=== PATIENT | male | born 1960 | race Caucasian/White ===

== ENCOUNTER 2017-08-17 11:10 | Emergency (ER) | payer OTHER ==
[~2017-08-17] VITALS: Ht 172.7 cm; Wt 106.6 kg
[~2017-08-17 11:10] MED LIST: CENTRUM SILVER1 EAC4 PO; GINKGO BILOBA30 MG PO; GLUCOPHAGE1000 MG PO; KEFLEX500 M1 PO; KLOR-CON 1010 MEQ PO; LISINOPRIL30 MG PO; MAGOX 400400 MG PO; NOVOLOG100 UNIT/1 SUBQ; SIMVASTATIN5 MG PO; VITAMIN D1000 UNI1 PO; VITAMINC500 PO
[2017-08-17] MEDS ORDERED: IBUPROFEN 800800 M1 PO (11:31)
[2017-08-17] MEDS ORDERED: AUGMENTIN 875-1 EACH PO ×2 (11:32→12:36)
[2017-08-17 11:53] LABS: ABSOLUTE NEUTROPHILS 4.8 thou/uL (1.4-8.2); BASOPHILS 0.8 % (0.0-2.0); EOSINOPHILS 3.6 % (0.0-3.0); HEMATOCRIT 39.5 % (42.0-52.0); HEMOGLOBIN 13.8 gm/dL (14.0-18.0); LYMPHOCYTES 25.9 % (24.0-44.0); MCH 30.9 pg (26.0-34.0); MCHC 34.8 g/dL (28.0-37.0); MCV 88.8 fL (80.0-100.0); MONOCYTES 6.4 % (1.0-8.0); PLATELET COUNT 206 thou/uL (150-400); POLYS 63.3 % (36.0-66.0); RBC 4.45 mil/uL (4.50-6.00); RDW 13.1 % (10.5-14.5); WBC 7.6 thou/uL (4.0-11.0)
[2017-08-17 12:06] LABS: CALCIUM 10.3 mg/dL (8.5-10.1); CREATININE 0.8 mg/dL (0.7-1.3); POTASSIUM 4.5 mmol/L (3.5-5.1)
[2017-08-17] MEDS ORDERED: ULTRAM 50MG TAB50 MG PO (12:36)
[2017-08-17 12:59] VITALS: BP 107/66
[2017-11-06] MEDS ORDERED: LISINOPRIL5 MG PO (15:25)
[2017-11-06] MEDS ORDERED: GLUCOPHAGE850 MG PO (15:25)
[2017-11-06] MEDS ORDERED: VITAMIN D35000 UNI1 PO (15:26)
[2017-11-06] MEDS ORDERED: SIMVASTATIN40 MG PO (15:26)
[2017-11-06] MEDS ORDERED: MULTI VITAMIN1 EACH PO (15:27)
[2017-11-06] MEDS ORDERED: MAGNESIUM CITR100 MG PO (15:27)
[2017-11-06] MEDS ORDERED: POTASSIUM99 M1 PO (15:29)
[2017-11-06] MEDS ORDERED: VITAMIN K100 MCG PO (15:29)
[2017-11-06] MEDS ORDERED: VITAMIN B122500 MCG PO (15:30)
[2017-11-06] MEDS ORDERED: GLUCOSAMINE &1 EACH PO (15:34)
[2017-11-06] MEDS ORDERED: MSM500 MG PO (15:35)
[2017-11-06] MEDS ORDERED: HYALURONIC ACI1 EACH PO (15:36)
[2017-11-06] MEDS ORDERED: TRESIBA FL100 UNIT/1 SUBQ (15:40)
[2017-12-07] MEDS ORDERED: BACTRIM DS TAB1 EACH PO (10:33)
== END 2017-08-17 12:59 | disposition home or self-care (01) ==
LOC: ER 11:10
PROVIDERS: Emergency Medicine
DX: L02.211 Cutaneous abscess of abdominal wall (principal); E10.9 Type 1 diabetes mellitus without complications; I10 Essential (primary) hypertension; Z87.891 Personal history of nicotine dependence

== ENCOUNTER 2017-11-15 05:25 | Inpatient (IN) | payer OTHER ==
[~2017-11-15] VITALS: Ht 172.7 cm; Wt 106.6 kg
--- NOTE | ~2017-11-15 | S ---
[facility] [place] [address] SURGICAL PATH RPT PROCEDURE Name: LEANDRO SCHWARTZ Room #: 405-P ADM IN M.R.#: [id number] Admission: 11/15/17 Date of : 58 Discharge: Report #: [id number] Path Case #: [id number] PATHOLOGY REPORT COLLECTION DATE: 11/15/2017 RECEIVED DATE: 11/16/2017 SUBMITTING PHYS: Dr. Jane Peck OTHER PHYS: Dr. Charles Ramirez SPECIMEN(S) RECEIVED: A.Appendix B.Omentum C.Abdominal tissue with infected mesh D.Gallbladder E.Hernia sac F.Abdominal skin * * * * * * * * * * * * FINAL DIAGNOSIS: A. Appendix, appendectomy: - Fibrous obliteration of the appendix. B. Omentum, omentectomy: - 15.8 cm omentum showing congestion, mild chronic inflammation, and areas of fat necrosis. C. Abdominal wall tissue with infected mesh, removal: - Marked acute inflammation associated with abscess formation, chronic inflammation as well as giant cell reaction. D. Gallbladder, cholecystectomy: - Mild chronic cholecystitis. - Cholesterolosis. E. Hernia sac, repair: - Fibrovascular connective tissue with marked acute and chronic inflammation, fibrinoid degeneration as well as congestion. F. Abdominal skin, excision: - Reactive and reparative changes. (IUV:pit; 11/19/2017) PATHOLOGIST: Ashlee Oliveira M.D. REPORT ELECTRONICALLY SIGNED BY: Ashlee Oliveira M.D. DATE/TIME: 11/19/2017 13:33 * * * * * * * * * * * * GROSS PATHOLOGY: A. Received in formalin labeled "Leandro Schwartz, appendix," is an appendix measuring 6.1 cm in length and up to 1.0 cm in diameter with [facility] [address] [place] [address] SURGICAL PATH RPT PROCEDURE Name: LEANDRO SCHWARTZ Room #: 405-P ADM IN M.R.#: [id number] Admission: 11/15/17 Date of : 58 Discharge: Report #: [id number] Path Case #: [id number] a moderate amount of attached mesoappendix. The serosal surface is pink-lynch and glistening in appearance. Sectioning reveals a pinpoint to patent lumen filled with blood-tinged mucoid material admixed with a slight amount of fecal material. Brick Or Block Maker sections are submitted in cassette A1. B. The specimen is received in formalin labeled "Leandro Schwartz, omentum". Received is a moderate amount of yellow-lynch omentum measuring 15.8 x 7.5 x 2.9 cm in aggregate dimensions. Sectioning reveals bright yellow, lobulated cut surfaces with no grossly distinct nodules or lesions. The specimen is submitted representatively in cassette B1. C. The specimen is received in formalin labeled "Leandro Schwartz, abdominal wall tissue with infected mesh". Received are multiple segments of yellow-lynch lobulated tissue admixed with pale lynch, wrinkled skin measuring 17.9 x 15.6 x 3.7 cm in aggregate dimensions. Sectioning reveals yellow-lynch, lobulated to white-lynch, fibrous cut surfaces throughout. Mesh-like material is not grossly identified upon thorough sectioning of the specimen. Sectioning through the tissue underlying the skin reveals a fistula measuring 1.5 cm in length by 0.5 cm in diameter with embedded sutures. The specimen is submitted representatively in cassette C1. D. Received in formalin labeled "Leandro Schwartz, gallbladder," is a 9.3 x 3.2 x 1.4 cm, intact gallbladder with blue-olivas serosal surfaces. Opening the gallbladder reveals a velvety, bile-stained mucosa with mild, diffuse cholesterolosis, and an average wall thickness of 0.1 cm. Calculi are not present and no masses are noted grossly. Brick Or Block Maker sections from the body and fundus are submitted along with the proximal margin in cassette D1. E. Received in formalin labeled "Leandro Schwartz, hernia sac," is a piece of fibroadipose tissue admixed with fibromembranous tissue measuring 22.7 x 15.9 x 5.1 cm. No nodules or lesions are identified. Brick Or Block Maker tissue is submitted in cassette E1. F. The specimen is received in formalin labeled "Leandro Schwartz, abdominal skin". Received are multiple segments of pale lynch, wrinkled skin with attached underlying yellow-lynch fibroadipose tissue and adherent olivas-lynch membranous tissue measuring 28.5 x 19.7 x 6.6 cm in aggregate dimensions. Sectioning reveals bright yellow, lobulated to white-lynch, fibrous cut surfaces throughout with no grossly distinct nodules or lesions. The specimen is submitted representatively in cassette F1. (CAA; 11/16/2017) CLINICAL HISTORY: Ventral hernia INITIAL CPT CODE(S): A; [address] [address] SURGICAL PATH RPT PROCEDURE Name: LEANDRO SCHWARTZ Room #: 405-P ADM IN M.R.#: [id number] Admission: 11/15/17 Date of : 58 Discharge: Report #: [id number] Path Case #: [id number] B; [id number] C; [id number] D; [id number] E; [id number] F; [id number] Professional services performed by [facility] at [facility] [address], [place] [address] Technical services performed by [facility] at [address] [place] [address], [place] [address]. [facility] [address] [place] [address] PHONE: [phone] DIRECTOR: Elder Owens M.D. * * * END OF REPORT * * *
--- NOTE | ~2017-11-15 | O ---
[facility] [place] [address] OPERATIVE REPORT Name: EFRENBLAKE Room #: 405-P ADM IN M.R.#: [id number] Admission: 11/15/17 Attend Phys: Jane Peck MD, Discharge: Date of : 58 Report #: [id number] THIS REPORT FOR: //name// CC: TUAN Peck DATE OF SERVICE: 11/15/2017 PREOPERATIVE DIAGNOSES: 1. Incarcerated recurrent incisional ventral hernias. 2. Multiple abdominal wall abscesses. 3. Essential hypertension. 4. Type 2 diabetes mellitus. 5. Hyperlipidemia. 6. Morbid obesity with a BMI of 36.07. 7. Suspected intra-abdominal adhesions. POSTOPERATIVE DIAGNOSES: 1. Incarcerated recurrent incisional ventral hernias. 2. Multiple abdominal wall abscesses. 3. Essential hypertension. 4. Type 2 diabetes mellitus. 5. Hyperlipidemia. 6. Morbid obesity with a BMI of 36.07. 7. Dense and significant intra-abdominal adhesions. 8. Chronic cholecystitis. 9. Appendiceal inflammation. 10. Loss of abdominal domain. 11. 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 12. Cirrhosis. PROCEDURES PERFORMED: 1. Exploratory laparotomy with extensive lysis of adhesions lasting 210 minutes. 2. Debridement of infected and necrotic abdominal wall tissue with explantation of infected biologic mesh and synthetic suture material. 3. Appendectomy. 4. Cholecystectomy. 5. Partial omentectomy. 6. Complex abdominal wall reconstruction with open repair of multiple incarcerated recurrent incisional ventral hernias using bioresorbable mesh. 7. Bilateral component separation. 8. Adjacent tissue transfer closure of the anterior abdominal wall, ultimately measuring 44 x 40 cm in dimension (1760 square cm). 9. Topical wound VAC device placement. [facility] [address] [place] [address] OPERATIVE REPORT Name: EFRENBLAKE Room #: 405-P [facility] IN .R.#: [id number] Admission: 11/15/17 Attend Phys: Jane Peck MD, Discharge: Date of : 58 Report #: [id number] 10. Modifier 22 procedure for extreme difficulty of procedure, necessitating a greater than 3-1/2 hour lysis of adhesions, coupled with the necessity of complex abdominal wall reconstruction techniques to repair his multiple incarcerated hernias and using adjacent tissue transfer closure techniques due to loss of subcutaneous tissue from his longstanding herniation. Total operative time was greater than 6 hours and difficulty was encountered secondary to the patient's obesity with a thick abdominal wall and marked intra-abdominal fatty tissue. SURGEON: Jane Peck M.D. RAT BREEDER: Charles Bartlett M.D. SECOND PARKING METER COLLECTOR: BRANDO Judd ANESTHESIA: General endotracheal anesthesia. ESTIMATED BLOOD LOSS: 200 mL. COMPLICATIONS: None appreciated. SPECIMENS: 1. Culture swabs x 4 to microbiology for aerobic, anaerobic and fungal culture and sensitivity for multiple areas of abscess formation of the abdominal wall. 2. All excised abdominal wall tissue and skin including hernia sac to pathology. 3. Infected biologic mesh to pathology. 4. Gallbladder to pathology. 5. Appendix to pathology. INDICATIONS: The patient is a 57-year-old male who has undergone a Chanelle's procedure for perforated diverticulitis in 2000 and ultimately underwent ostomy reversal. Since that time, the patient underwent two subsequent re-explorations initially for a cyst on his colon as well as repair of an incisional hernia. The patient has been found to have numerous sites of recurrent incisional herniation and has had aggressive weight loss, all while having numerous abdominal wall abscesses erupt with purulent drainage. Indication today was for definitive surgical management. Intraoperative findings of gnarled up biologic mesh was encountered with purulent material juxtaposed to it as well as numerous sites of synthetic suture material with purulent drainage as well that required formal explantation and debridement as well as definitive surgical management as delineated above. DESCRIPTION OF PROCEDURE: After explaining the risks, benefits and alternatives of the procedure with the patient in detail in the preoperative holding area and obtaining written consent, the patient was brought to the operating room and [address] [address] OPERATIVE REPORT Name: EFRENBLAKE Room #: 405-P [facility] IN .R.#: [id number] Admission: 11/15/17 Attend Phys: Jane Peck MD, Discharge: Date of : 58 Report #: [id number] placed supine on the operating room table. After conducting a thorough timeout procedure verifying correct patient and procedure, the patient was given general endotracheal anesthesia. Once adequate anesthesia was obtained, his SCDs were hooked up to pneumatic compression device. He was given a preoperative dose of antibiotics in line with the SCIP protocol. The patient's abdomen was prepped and draped in standard surgical sterile fashion. A #10 bladed scalpel was used to create a longitudinal midline incision from subxyphoid location to the suprapubic location. This was made in elliptical fashion around his prior midline scar that appeared to have slight dehiscence. Electrocautery was used to carry this down through skin and subcutaneous tissues to ensure hemostasis. The scar was excised and passed off the field as specimen. I entered into the abdomen and the superior most aspect of the incision site and was able to place a finger into the abdomen and I opened the longitudinal midline incision with some difficulty due to the significant adhesions as well as numerous sites of incarcerated bowel. Ultimately, I was able to open the entire fascial incision in a controlled setting without damage to the underlying bowel structures and Ben clamps were placed along the edges of what appeared to be fascia. This was elevated and I proceeded to continue our lysis of adhesions, which ultimately lasted 210 minutes. Through this lysis, I proceeded to take down all adhesions from the posterior aspect of the anterior abdominal wall throughout as well as having taken down all interloop abscesses from the small bowel and colon. Once the lysis of adhesions was done, I proceeded to run the small bowel from ligament of Treitz distally in a [id number]-paao-yfzz fashion on three subsequent occasions showing no evidence of serosal injuries, enterotomies or defects. The patient's appendix was markedly enlarged and elongated with a thickened appearance and hyperinjection consistent with possible chronic appendicitis and as such, we did elect to perform an appendectomy. A window was made in the mesoappendix near its base using electrocautery and the appendix was then transected at its healthy base with a MANUELA blue load 75 mm stapler. The appendix was elevated and the mesoappendix was transected using the EnSeal X1 advanced energy device for hemostasis. This was then passed off the field as specimen. I proceeded to oversew the appendiceal staple line using 3-0 PDS in standard Lembert fashion using a [id number]-[id number] Lembert suture as a Z-stitch. The entire ascending, transverse, and descending colons appeared healthy and uninjured throughout. Evaluation of the patient's gallbladder showed marked cholesterolosis and thickening and as such, we elected to perform a cholecystectomy due to the high risk nature of any subsequent gallbladder attacks and proceeding with a cholecystectomy at that time being incidentally more difficult. The patient did have prior complaints of intermittent postprandial right upper quadrant pain as well. A Pean clamp was used to elevate the gallbladder and tedious dissection was undertaken down around the cholecystocystic junction using a right angle dissector. Ultimately, I was able to attain a critical view, namely the cystic duct emanating from the infundibulum of the gallbladder and coursing the common bile duct as well as cystic artery running the surface of the gallbladder and I created a window behind each. I transected the cystic artery between sets of 2 clips each side [facility] [address] [place] [address] OPERATIVE REPORT Name: BLAKE SCHWARTZ Room #: 405-P [facility] IN M.R.#: [id number] Admission: 11/15/17 Attend Phys: Jane Peck MD, Discharge: Date of : 58 Report #: [id number] and transected between them using Metzenbaum scissors. Three clips were placed along the cystic duct nearest to the common bile duct side and one clip was placed along the cystic duct nearest to the gallbladder side. I transected the cystic duct with Metzenbaum scissors between those sets of clips as well. We now proceeded to resect the gallbladder off the liver bed using electrocautery for hemostasis. The gallbladder was then passed off the field as specimen. The patient did have a cirrhotic liver and as such, we did place a piece of Surgicel in the gallbladder fossa as well as FloSeal for long-term hemostasis. Turning our attention to the patient's abdominal wall at this juncture, the patient did have evidence of numerous sites of synthetic suture material as well as what appeared to be a biologic mesh gnarled up upon itself. We proceeded to debride all of this ischemic and necrotic abdominal wall tissue including explantation of a synthetic suture material and explanted all mesh, which showed multiple sites of purulent material for which culture swabs were taken and passed to microbiology. Ultimately, once I had excised all of this tissue and synthetic material, we had healthy viable vascularized fascia evident. Unfortunately, the patient did have loss of abdominal domain at this juncture and necessitated bilateral component separation closure of the anterior abdominal wall. The patient's posterior fascia was completely obliterated and entering into the transversus space appeared to be not possible at this juncture and as such, I proceeded to perform an external oblique release. Electrocautery was used to score the lateral border of the rectus abdominis muscle bilaterally and as far as possible in the craniocaudal fashion. Taking down this external oblique aponeurosis allowed significant medial mobilization of the midline fascial wound to where it could be brought together at the midline without tension. One final evaluation of the intra-abdominal domain showed no further evidence of pathology. I did irrigate with 500 mL of normal saline and it ran clear. We had no intra-abdominal spillage of any kind. I now closed the midline fascial wound using looped #1 PDS suture in standard running fashion from inferior to superior as well as another suture from superior to inferior and where the sutures met, they were tied together. The subcutaneous space was now copiously irrigated as well. I now proceeded to use Phasix bioresorbable mesh to use as an onlay and selected 2 pieces of Phasix, the first being 30 x 25 cm in dimension, the second being 20 x 15 cm in dimension. These were tailored to fit the abdominal wall and were quilted together using #1 PDS suture in standard running fashion. This was then used as an onlay where it was anchored to the fascia using 0 PDS sutures as well as 50 mL of Tisseel. This gave us excellent biologic bioresorbable mesh buttressing of our numerous abdominal wall suture repairs for his hernias. Of note, prior to closing the midline fascial wound, he did have evidence of an additional incisional hernia in the left mid rectus location, which I suspect was his prior ostomy site. This was closed using #1 PDS in standard running fashion, taking full thickness bites longitudinally. This was done prior to closing the midline fascial wound. I now placed two 19 Amharic Javid-Panchal drains in the subcutaneous space. These were anchored to the skin using 2-0 nylon in a standard fashion. The one emanating from the right lower quadrant crossed over low in the pelvis and ran up the left [address] [address] OPERATIVE REPORT Name: EFRENBLAKE Room #: 405-P ADM IN M.R.#: [id number] Admission: 11/15/17 Attend Phys: Jane Peck MD, Discharge: Date of : 58 Report #: [id number] subcutaneous gutter and vice versa. The drain emanating from the left lower quadrant crossed over in the pelvis and ran up the right subcutaneous gutter. Unfortunately, due to the patient's longstanding large herniation, his bowel was right next to skin and he had no subcutaneous tissue in the right lower abdominal wall region. The patient had a significant amount of excess skin as well and as such, we now tailored the anterior abdominal wall, resecting all excess skin including hernia sac. Bringing the skin together at the midline showed no subcutaneous tissue overlying the mesh in the right lower abdomen and as such, I performed an adjacent tissue transfer closure of the anterior abdominal wall. In the process of performing this operation, we did clear large skin flaps circumferentially, defined healthy fascia throughout and at the skin flaps were elevated and I proceeded to make relaxing incisions internally using electrocautery to allow medial rotation of vascularized pedicles of subcutaneous fat, which were then sewn down at numerous locations to attain soft tissue coverage over the mesh that was vascularized and below skin. Once this was done, I proceeded to close skin using skin lizbeth and placed a topical wound VAC device in standard fashion. At the end of the lengthy procedure, all instrument, needle and sponge counts were correct. The patient tolerated the procedure without incident, was awakened in the operating room and transitioned to the recovery room in stable condition with no apparent complications. <ELECTRONICALLY SIGNED> By: Jane Peck MD, FACS 11/19/17 [id number] Jane Peck MD, FACS /nt
[~2017-11-15 05:25] MED LIST changes: +AUGMENTIN 875-1 EACH PO; +GLUCOPHAGE850 MG PO; +GLUCOSAMINE &1 EACH PO; +HYALURONIC ACI1 EACH PO; +IBUPROFEN 800800 M1 PO; +LISINOPRIL5 MG PO; +MAGNESIUM CITR100 MG PO; +MSM500 MG PO; +MULTI VITAMIN1 EACH PO; +POTASSIUM99 M1 PO; +SIMVASTATIN40 MG PO; +TRESIBA FL100 UNIT/1 SUBQ; +ULTRAM 50MG TAB50 MG PO; +VITAMIN B122500 MCG PO; +VITAMIN D35000 UNI1 PO; +VITAMIN K100 MCG PO
[2017-11-15 09:00] VITALS: BP 128/78
[2017-11-15 09:16] LABS: HEMATOCRIT 43.3 % (42.0-52.0); HEMOGLOBIN 14.8 gm/dL (14.0-18.0)
[2017-11-15 18:55] VITALS: BP 161/89
[2017-11-15 20:26] VITALS: BP 161/89
[2017-11-15 23:57] VITALS: BP 120/73
[2017-11-16 04:42] VITALS: BP 122/81
[2017-11-16 05:37] LABS: HEMATOCRIT 43.8 % (42.0-52.0); HEMOGLOBIN 14.3 gm/dL (14.0-18.0); MCH 29.7 pg (26.0-34.0); MCHC 32.7 g/dL (28.0-37.0); MCV 90.7 fL (80.0-100.0); RBC 4.82 mil/uL (4.50-6.00); RDW 14.2 % (10.5-14.5); WBC 12.1 thou/uL (4.0-11.0)
[2017-11-16 05:43] LABS: CALCIUM 8.3 mg/dL (8.5-10.1); CREATININE 1.1 mg/dL (0.7-1.3); POTASSIUM 5.2 mmol/L (3.5-5.1)
[2017-11-16 07:32] VITALS: BP 130/72
[2017-11-16 15:00] VITALS: BP 113/63
[2017-11-16 20:22] VITALS: BP 116/75
[2017-11-17 03:25] LABS: ABSOLUTE NEUTROPHILS 8.5 thou/uL (1.4-8.2); BASOPHILS 0.5 % (0.0-2.0); EOSINOPHILS 1.2 % (0.0-3.0); HEMATOCRIT 34.9 % (42.0-52.0); LYMPHOCYTES 15.3 % (24.0-44.0); MCH 30.3 pg (26.0-34.0); MCHC 33.3 g/dL (28.0-37.0); MONOCYTES 10.1 % (1.0-8.0); PLATELET COUNT 178 thou/uL (150-400); POLYS 72.9 % (36.0-66.0); RBC 3.83 mil/uL (4.50-6.00); RDW 13.9 % (10.5-14.5); WBC 11.7 thou/uL (4.0-11.0)
[2017-11-17 03:33] LABS: HEMOGLOBIN 11.6 gm/dL (14.0-18.0)
[2017-11-17 03:34] LABS: CALCIUM 8.1 mg/dL (8.5-10.1); CREATININE 0.9 mg/dL (0.7-1.3); POTASSIUM 4.4 mmol/L (3.5-5.1)
[2017-11-17 05:02] VITALS: BP 142/63
[2017-11-17 07:25] VITALS: BP 150/91
[2017-11-17 17:50] VITALS: BP 156/82
[2017-11-17 20:00] VITALS: BP 160/87
[2017-11-18 04:27] LABS: ABSOLUTE NEUTROPHILS 8.3 thou/uL (1.4-8.2); BASOPHILS 0.5 % (0.0-2.0); EOSINOPHILS 2.8 % (0.0-3.0); HEMATOCRIT 33.6 % (42.0-52.0); HEMOGLOBIN 11.3 gm/dL (14.0-18.0); LYMPHOCYTES 10.1 % (24.0-44.0); MCH 30.5 pg (26.0-34.0); MCHC 33.7 g/dL (28.0-37.0); MCV 90.5 fL (80.0-100.0); MONOCYTES 7.4 % (1.0-8.0); PLATELET COUNT 164 thou/uL (150-400); POLYS 79.2 % (36.0-66.0); RBC 3.71 mil/uL (4.50-6.00); RDW 13.9 % (10.5-14.5); WBC 10.5 thou/uL (4.0-11.0)
[2017-11-18 04:40] LABS: CALCIUM 8.7 mg/dL (8.5-10.1); CREATININE 0.6 mg/dL (0.7-1.3); POTASSIUM 3.9 mmol/L (3.5-5.1)
[2017-11-18 07:59] VITALS: BP 144/74
[2017-11-18 17:05] VITALS: BP 153/95
[2017-11-18 19:53] VITALS: BP 150/81
[2017-11-19 05:03] VITALS: BP 148/76
[2017-11-19 06:38] LABS: ABSOLUTE NEUTROPHILS 6.1 thou/uL (1.4-8.2); BASOPHILS 0.5 % (0.0-2.0); EOSINOPHILS 3.7 % (0.0-3.0); HEMATOCRIT 33.4 % (42.0-52.0); HEMOGLOBIN 11.3 gm/dL (14.0-18.0); LYMPHOCYTES 12.1 % (24.0-44.0); MCH 30.6 pg (26.0-34.0); MCHC 33.8 g/dL (28.0-37.0); MCV 90.5 fL (80.0-100.0); MONOCYTES 7.4 % (1.0-8.0); PLATELET COUNT 201 thou/uL (150-400); POLYS 76.3 % (36.0-66.0); RBC 3.69 mil/uL (4.50-6.00)
[2017-11-19 06:52] LABS: CALCIUM 9.1 mg/dL (8.5-10.1); CREATININE 0.6 mg/dL (0.7-1.3); POTASSIUM 3.8 mmol/L (3.5-5.1)
[2017-11-19 08:45] VITALS: BP 137/88
[2017-11-19 17:02] VITALS: BP 149/88
[2017-11-19 20:00] VITALS: BP 134/69
[2017-11-20] VITALS: BP 138/80
[2017-11-20 04:00] VITALS: BP 145/86
[2017-11-20 06:17] LABS: BASOPHILS 0.8 % (0.0-2.0); EOSINOPHILS 3.4 % (0.0-3.0); HEMATOCRIT 33.6 % (42.0-52.0); HEMOGLOBIN 11.3 gm/dL (14.0-18.0); LYMPHOCYTES 11.6 % (24.0-44.0); MCH 30.5 pg (26.0-34.0); MCHC 33.7 g/dL (28.0-37.0); MCV 90.4 fL (80.0-100.0); MONOCYTES 8.8 % (1.0-8.0); PLATELET COUNT 222 thou/uL (150-400); POLYS 75.4 % (36.0-66.0); RBC 3.71 mil/uL (4.50-6.00); RDW 14.2 % (10.5-14.5); WBC 9.3 thou/uL (4.0-11.0)
[2017-11-20 06:39] LABS: CALCIUM 9.6 mg/dL (8.5-10.1); CREATININE 0.6 mg/dL (0.7-1.3); POTASSIUM 3.5 mmol/L (3.5-5.1)
[2017-11-20 09:41] VITALS: BP 140/90
[2017-11-20 20:00] VITALS: BP 141/89
[2017-11-20 23:40] VITALS: BP 150/90
[2017-11-21 04:00] VITALS: BP 136/76
[2017-11-21 05:54] LABS: BASOPHILS 0.6 % (0.0-2.0); EOSINOPHILS 4.7 % (0.0-3.0); HEMOGLOBIN 11.1 gm/dL (14.0-18.0); MCH 30.7 pg (26.0-34.0); MCHC 33.7 g/dL (28.0-37.0); MCV 91.3 fL (80.0-100.0); MONOCYTES 9.4 % (1.0-8.0); PLATELET COUNT 233 thou/uL (150-400); POLYS 75.3 % (36.0-66.0); RBC 3.62 mil/uL (4.50-6.00); WBC 9.3 thou/uL (4.0-11.0)
[2017-11-21 06:14] LABS: CALCIUM 9.2 mg/dL (8.5-10.1); CREATININE 0.6 mg/dL (0.7-1.3); POTASSIUM 3.5 mmol/L (3.5-5.1)
[2017-11-21 07:40] VITALS: BP 133/81
[2017-11-21 11:00] VITALS: BP 129/87
[2017-11-21 15:29] VITALS: BP 139/80
[2017-11-21 19:09] VITALS: BP 134/80
[2017-11-22 04:47] VITALS: BP 119/76
[2017-11-22 06:04] LABS: HEMATOCRIT 33.6 % (42.0-52.0); HEMOGLOBIN 11.2 gm/dL (14.0-18.0); MCH 30.3 pg (26.0-34.0); MCHC 33.3 g/dL (28.0-37.0); MCV 91.1 fL (80.0-100.0); RBC 3.69 mil/uL (4.50-6.00); RDW 14.3 % (10.5-14.5); WBC 9.1 thou/uL (4.0-11.0)
[2017-11-22 06:21] LABS: CALCIUM 9.3 mg/dL (8.5-10.1); CREATININE 0.6 mg/dL (0.7-1.3); POTASSIUM 3.6 mmol/L (3.5-5.1)
[2017-11-22 08:30] VITALS: BP 135/88
[2017-11-22 16:00] VITALS: BP 147/91
[2017-11-22 20:11] VITALS: BP 150/79
[2017-11-23 03:39] LABS: ABSOLUTE NEUTROPHILS 6.2 thou/uL (1.4-8.2); BASOPHILS 0.5 % (0.0-2.0); EOSINOPHILS 5.1 % (0.0-3.0); HEMATOCRIT 34.2 % (42.0-52.0); HEMOGLOBIN 11.5 gm/dL (14.0-18.0); LYMPHOCYTES 15.7 % (24.0-44.0); MCH 30.2 pg (26.0-34.0); MCHC 33.4 g/dL (28.0-37.0); MCV 90.2 fL (80.0-100.0); MONOCYTES 9.6 % (1.0-8.0); PLATELET COUNT 299 thou/uL (150-400); POLYS 69.1 % (36.0-66.0)
[2017-11-23 03:54] LABS: CALCIUM 9.6 mg/dL (8.5-10.1); CREATININE 0.6 mg/dL (0.7-1.3); POTASSIUM 3.5 mmol/L (3.5-5.1)
[2017-11-23 05:23] VITALS: BP 135/76
[2017-11-23 08:51] VITALS: BP 136/87
[2017-11-23] MEDS ORDERED: NICOTINE TRANSD21 M1 TRANSDERM (10:16)
[2017-11-23] MEDS ORDERED: PERCOCET 7.5-31 EAC1 PO (10:16)
[2017-11-23] MEDS ORDERED: AUGMENTIN 875-1 EACH PO (10:36)
[2017-11-23 16:00] VITALS: BP 136/87
[2017-11-23 16:14] VITALS: BP 136/87
[2017-11-23 17:15] VITALS: BP 150/86
== END 2017-11-23 18:07 | disposition home health service (06) | DRG 901 ==
LOC: 4N 05:25 → TBA 05:25 → PRE 10:41 → 4N 17:32
PROVIDERS: Family Medicine; Student in an Organized Health Care Education/Training Program; Surgery
PROC: 0WUF4JZ Supplement Abdominal Wall with Synthetic Substitute, Percutaneous Endoscopic Approach (ICD-10-PCS; principal; 2017-11-15)
PROC: 0FT44ZZ Resection of Gallbladder, Percutaneous Endoscopic Approach (ICD-10-PCS; principal; 2017-11-15)
PROC: 0DBU4ZZ Excision of Omentum, Percutaneous Endoscopic Approach (ICD-10-PCS; principal; 2017-11-15)
PROC: 0JB80ZZ Excision of Abdomen Subcutaneous Tissue and Fascia, Open Approach (ICD-10-PCS; principal; 2017-11-15)
PROC: 0JX80ZZ Transfer Abdomen Subcutaneous Tissue and Fascia, Open Approach (ICD-10-PCS; principal; 2017-11-15)
PROC: 0DNW4ZZ Release Peritoneum, Percutaneous Endoscopic Approach (ICD-10-PCS; principal; 2017-11-15)
PROC: 0DTJ4ZZ Resection of Appendix, Percutaneous Endoscopic Approach (ICD-10-PCS; principal; 2017-11-15)
DX: T85.79XA Infection and inflammatory reaction due to other internal prosthetic devices, implants and grafts, initial encounter (principal); A41.9 Sepsis, unspecified organism; G93.40 Encephalopathy, unspecified; L02.211 Cutaneous abscess of abdominal wall; K43.2 Incisional hernia without obstruction or gangrene; K37 Unspecified appendicitis; K66.0 Peritoneal adhesions (postprocedural) (postinfection); I10 Essential (primary) hypertension; E11.9 Type 2 diabetes mellitus without complications; E78.5 Hyperlipidemia, unspecified; E66.01 Morbid (severe) obesity due to excess calories; Z68.35 Body mass index [BMI] 35.0-35.9, adult; K81.1 Chronic cholecystitis; K74.60 Unspecified cirrhosis of liver; Z79.899 Other long term (current) drug therapy; E66.9 Obesity, unspecified; Z82.49 Family history of ischemic heart disease and other diseases of the circulatory system; Z83.3 Family history of diabetes mellitus; Z82.3 Family history of stroke
CPT/HCPCS: 10790; 50010; 50093; 50101; 50386; 50455; 51114; 51412; 51436; 51437; 51712; 51751; 54109; 56525; 56527; 56530; 56639; 56668; 56762; 57092; 62110; 62900; 65002; 65075; 70005

== ENCOUNTER → 2017-11-28 | Outpatient (CLI) | payer OTHER ==
[~2017-11-28] MED LIST changes: +NICOTINE TRANSD21 M1 TRANSDERM; +PERCOCET 7.5-31 EAC1 PO
[2017-11-28 12:28] LABS: CREATININE 0.8 mg/dL (0.7-1.3)
== END ==
LOC: LABMALL 11:42
PROVIDERS: Registered Nurse
DX: K65.1 Peritoneal abscess (principal)

== ENCOUNTER 2017-11-30 17:45 | Emergency (ER) | payer OTHER ==
[~2017-11-30] VITALS: Ht 172.7 cm; Wt 104.3 kg
[2017-11-30] MEDS ORDERED: AUGMENTIN 875-1 EACH PO (19:03)
[2017-12-07] MEDS ORDERED: BACTRIM DS TAB1 EACH PO (10:33)
== END 2017-11-30 19:15 | disposition home or self-care (01) ==
LOC: ER 17:45
DX: K91.873 Postprocedural seroma of a digestive system organ or structure following other procedure (principal); E11.9 Type 2 diabetes mellitus without complications; I10 Essential (primary) hypertension; E78.5 Hyperlipidemia, unspecified; Z86.14 Personal history of Methicillin resistant Staphylococcus aureus infection; Z98.890 Other specified postprocedural states; Z79.4 Long term (current) use of insulin; F17.210 Nicotine dependence, cigarettes, uncomplicated; Y83.9 Surgical procedure, unspecified as the cause of abnormal reaction of the patient, or of later complication, without mention of misadventure at the time of the procedure; Y92.89 Other specified places as the place of occurrence of the external cause

== ENCOUNTER → 2017-12-10 | Outpatient (CLI) | payer OTHER ==
[~2017-12-10] MED LIST changes: +BACTRIM DS TAB1 EACH PO
== END ==
LOC: HYPER
DX: T81.31XD Disruption of external operation (surgical) wound, not elsewhere classified, subsequent encounter (principal); E11.9 Type 2 diabetes mellitus without complications; I10 Essential (primary) hypertension; E78.5 Hyperlipidemia, unspecified; E66.01 Morbid (severe) obesity due to excess calories; F17.200 Nicotine dependence, unspecified, uncomplicated; Z68.32 Body mass index [BMI] 32.0-32.9, adult; Z79.4 Long term (current) use of insulin; Z79.84 Long term (current) use of oral hypoglycemic drugs; Y83.8 Other surgical procedures as the cause of abnormal reaction of the patient, or of later complication, without mention of misadventure at the time of the procedure

== ENCOUNTER → 2017-12-17 | Outpatient (CLI) | payer OTHER | LOC: HYPER 06:48 | DX: T81.31XD Disruption of external operation (surgical) wound, not elsewhere classified, subsequent encounter (principal); I10 Essential (primary) hypertension; E78.5 Hyperlipidemia, unspecified; E66.01 Morbid (severe) obesity due to excess calories; F17.200 Nicotine dependence, unspecified, uncomplicated; Z79.4 Long term (current) use of insulin; Z79.84 Long term (current) use of oral hypoglycemic drugs; Z68.32 Body mass index [BMI] 32.0-32.9, adult; Y83.8 Other surgical procedures as the cause of abnormal reaction of the patient, or of later complication, without mention of misadventure at the time of the procedure ==

== ENCOUNTER → 2017-12-19 | Outpatient (CLI) | payer OTHER | LOC: CAT 10:45 | DX: K43.0 Incisional hernia with obstruction, without gangrene (principal); K65.1 Peritoneal abscess; L02.211 Cutaneous abscess of abdominal wall; E11.9 Type 2 diabetes mellitus without complications; Z79.4 Long term (current) use of insulin; Z22.322 Carrier or suspected carrier of Methicillin resistant Staphylococcus aureus ==

== ENCOUNTER → 2017-12-26 | Outpatient (CLI) | payer OTHER | LOC: HYPER 06:51 | DX: T81.31XD Disruption of external operation (surgical) wound, not elsewhere classified, subsequent encounter (principal); E11.628 Type 2 diabetes mellitus with other skin complications; E78.5 Hyperlipidemia, unspecified; I10 Essential (primary) hypertension; F17.200 Nicotine dependence, unspecified, uncomplicated; E66.01 Morbid (severe) obesity due to excess calories; Z68.32 Body mass index [BMI] 32.0-32.9, adult; Z79.4 Long term (current) use of insulin; Z79.84 Long term (current) use of oral hypoglycemic drugs; Y83.8 Other surgical procedures as the cause of abnormal reaction of the patient, or of later complication, without mention of misadventure at the time of the procedure ==

== ENCOUNTER → 2018-01-03 | Outpatient (CLI) | payer OTHER | END | disposition home or self-care (01) | LOC: SPEC 11:58 | DX: Z48.03 Encounter for change or removal of drains (principal); E11.9 Type 2 diabetes mellitus without complications; I10 Essential (primary) hypertension; E78.5 Hyperlipidemia, unspecified; F17.210 Nicotine dependence, cigarettes, uncomplicated; E66.01 Morbid (severe) obesity due to excess calories; Z79.4 Long term (current) use of insulin; Z98.890 Other specified postprocedural states; Z82.49 Family history of ischemic heart disease and other diseases of the circulatory system; Z98.0 Intestinal bypass and anastomosis status; Z90.49 Acquired absence of other specified parts of digestive tract; Z79.899 Other long term (current) drug therapy; Z79.891 Long term (current) use of opiate analgesic ==

== ENCOUNTER → 2018-01-10 | Outpatient (CLI) | payer OTHER | LOC: HYPER 06:51 | DX: T81.31XD Disruption of external operation (surgical) wound, not elsewhere classified, subsequent encounter (principal); L03.311 Cellulitis of abdominal wall; E11.628 Type 2 diabetes mellitus with other skin complications; E78.5 Hyperlipidemia, unspecified; I10 Essential (primary) hypertension; F17.200 Nicotine dependence, unspecified, uncomplicated; E66.01 Morbid (severe) obesity due to excess calories; Z68.32 Body mass index [BMI] 32.0-32.9, adult; Z79.4 Long term (current) use of insulin; Z79.84 Long term (current) use of oral hypoglycemic drugs; Y83.8 Other surgical procedures as the cause of abnormal reaction of the patient, or of later complication, without mention of misadventure at the time of the procedure ==

== ENCOUNTER → 2018-01-24 | Outpatient (CLI) | payer OTHER | LOC: HYPER 06:47 | DX: T81.31XD Disruption of external operation (surgical) wound, not elsewhere classified, subsequent encounter (principal); E11.628 Type 2 diabetes mellitus with other skin complications; E66.01 Morbid (severe) obesity due to excess calories; I10 Essential (primary) hypertension; E78.5 Hyperlipidemia, unspecified; F17.210 Nicotine dependence, cigarettes, uncomplicated; Z79.4 Long term (current) use of insulin; Z79.84 Long term (current) use of oral hypoglycemic drugs; Z68.32 Body mass index [BMI] 32.0-32.9, adult; Y83.8 Other surgical procedures as the cause of abnormal reaction of the patient, or of later complication, without mention of misadventure at the time of the procedure ==

== ENCOUNTER → 2018-02-07 | Outpatient (CLI) | payer OTHER | LOC: HYPER 07:03 | DX: T81.31XD Disruption of external operation (surgical) wound, not elsewhere classified, subsequent encounter (principal); E11.9 Type 2 diabetes mellitus without complications; I10 Essential (primary) hypertension; E78.5 Hyperlipidemia, unspecified; E66.01 Morbid (severe) obesity due to excess calories; F17.200 Nicotine dependence, unspecified, uncomplicated; Z68.32 Body mass index [BMI] 32.0-32.9, adult; Z79.4 Long term (current) use of insulin; Z79.84 Long term (current) use of oral hypoglycemic drugs; Y83.8 Other surgical procedures as the cause of abnormal reaction of the patient, or of later complication, without mention of misadventure at the time of the procedure ==

== ENCOUNTER → 2018-02-21 | Outpatient (CLI) | payer OTHER | LOC: HYPER 07:04 | DX: T81.31XD Disruption of external operation (surgical) wound, not elsewhere classified, subsequent encounter (principal); I10 Essential (primary) hypertension; E78.5 Hyperlipidemia, unspecified; L03.311 Cellulitis of abdominal wall; F17.200 Nicotine dependence, unspecified, uncomplicated; Z79.4 Long term (current) use of insulin; Z79.84 Long term (current) use of oral hypoglycemic drugs; Z68.32 Body mass index [BMI] 32.0-32.9, adult; Y83.8 Other surgical procedures as the cause of abnormal reaction of the patient, or of later complication, without mention of misadventure at the time of the procedure ==

== ENCOUNTER → 2018-03-07 | Outpatient (CLI) | payer OTHER | LOC: HYPER 06:51 | DX: T81.31XD Disruption of external operation (surgical) wound, not elsewhere classified, subsequent encounter (principal); E11.9 Type 2 diabetes mellitus without complications; L03.311 Cellulitis of abdominal wall; I10 Essential (primary) hypertension; E66.01 Morbid (severe) obesity due to excess calories; E78.5 Hyperlipidemia, unspecified; F17.200 Nicotine dependence, unspecified, uncomplicated; Z79.4 Long term (current) use of insulin; Z68.32 Body mass index [BMI] 32.0-32.9, adult; Z79.84 Long term (current) use of oral hypoglycemic drugs; Y83.8 Other surgical procedures as the cause of abnormal reaction of the patient, or of later complication, without mention of misadventure at the time of the procedure ==

== ENCOUNTER → 2018-03-27 | Outpatient (CLI) | payer OTHER | LOC: HYPER 06:49 | DX: T81.31XD Disruption of external operation (surgical) wound, not elsewhere classified, subsequent encounter (principal); I10 Essential (primary) hypertension; E78.5 Hyperlipidemia, unspecified; E66.01 Morbid (severe) obesity due to excess calories; F17.200 Nicotine dependence, unspecified, uncomplicated; Z79.4 Long term (current) use of insulin; Z79.84 Long term (current) use of oral hypoglycemic drugs; Z68.32 Body mass index [BMI] 32.0-32.9, adult; Y83.8 Other surgical procedures as the cause of abnormal reaction of the patient, or of later complication, without mention of misadventure at the time of the procedure ==